=== PATIENT | male | born 1970 | race Caucasian/White ===

== ENCOUNTER 2025-03-24 19:16 | Emergency (ER) | payer BC ==
[2025-03-24] MEDS: Tetracaine HCl/PF 0.5% 4 ML Bottle EYEBOTH ONE (19:35)
== END 2025-03-24 20:40 | disposition home or self-care (01) ==
LOC: MW.ED 19:16
DX: S05.01XA Injury of conjunctiva and corneal abrasion without foreign body, right eye, initial encounter (principal); F17.210 Nicotine dependence, cigarettes, uncomplicated; Z75.3 Unavailability and inaccessibility of health-care facilities; Z79.899 Other long term (current) drug therapy; Z79.4 Long term (current) use of insulin; X58.XXXA Exposure to other specified factors, initial encounter; Y93.89 Activity, other specified
CPT/HCPCS: 99282; 99283; J3490